=== PATIENT | female | born 1990 | race Caucasian/White ===

== ENCOUNTER 2019-01-01 16:11 | Emergency (ER) | payer OTHER ==
[2019-01-01 16:25] VITALS: BP 114/63
--- NOTE | 2019-01-01 16:39 | EDM.PDOC ---
ED HPI GENERAL MEDICAL PROBLEM - General Chief Complaint: Wound Recheck Stated Complaint: ISSUE WITH INCISION FOLLOWING SURGERY Time Seen by Provider: 01/01/19 16:22 Source of Information: Reports: Patient History Limitations: Reports: No Limitations - History of Present Illness INITIAL COMMENTS - FREE TEXT/NARRATIVE: 28-year-old female attends the ED with pain in her laparoscopic incisional wound left lower quadrant of the abdomen. Patient attended the hospital and underwent a laparoscopic appendectomy by Dr. Floyd Johnson local surgeon 9 days ago. She states all of her surgical wounds other than the left lower quadrant wound are healing well and are causing little discomfort. However she has sneezed and subsequent developed severe pain left lower quadrant at the site of her laparoscopic wound. And not stand fully erect due to the pain in this area. It's her bowels are functioning normally. Appetite is okay. He were chills. Wounds are held together by Dermabond. Onset: Other (Has had pain at the surgical site since the time of surgery 9 days ago) Onset Date: 12/23/18 Duration: Day(s):, Getting Worse Location: Reports: Abdomen (Surgical wound site from laparoscopic wound left lower quadrant/mid quadrant of the abdomen.) Quality: Reports: Ache, Other Severity: Moderate (Cannot stand fully erect position next the pain worse. Current pain is constant and made worse by certain movements or but sneezing or laughing.) Improves with: Reports: Rest Worsens with: Reports: Movement Context: Reports: Other (Post laparoscopic surgical wound for appendectomy carried out 9 days ago.). Denies: Activity (Certain movements will make the pain worse.), Exercise, Lifting, Sick Contact, Trauma Associated Symptoms: Reports: No Other Symptoms Treatments ADMISSIONS REPRESENTATIVE: Reports: Other (see below) (None.) Left Abdomen Pain Score (Numeric/FACES): 4 - Related Data Allergies Allergy/AdvReac Type Severity Reaction Status Date / Time No Known Allergies Allergy Verified 01/01/19 16:25 Home Meds: Home Meds . [No Known Home Meds] 12/23/18 [History] Past Medical History - Past Health History Medical/Surgical History: Denies Medical/Surgical History HEENT History: Reports: Impaired Vision, Other (See Below) Other HEENT History: Wears glasses Gastrointestinal History: Reports: GERD FAMILY COACH History: Reports: , Spontaneous Other FAMILY COACH History: Patient has had circlage; leap procedure 2010 - Past Surgical History HEENT Surgical History: Reports: None GI Surgical History: Reports: Appendectomy Female Surgical History: Reports: LEEP Social & Family History - Family History Family Medical History: Noncontributory Neurological: Reports: CVA Oncologic: Reports: Breast, Cervix - Tobacco Use Smoking Status *Q: Never Smoker - Caffeine Use Caffeine Use: Reports: None - Recreational Drug Use Recreational Drug Use: No - Living Situation & Occupation Living situation: Reports: 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 ) Neurological: Reports: No Symptoms Psychiatric: Reports: No Symptoms Hematologic/Lymphatic: Reports: No Symptoms ED EXAM, SKIN/RASH Exam: See Below Exam Limited By: No Limitations General Appearance: Alert, WD/WN, No Apparent Distress, Other (Temperature 37.2. Pulse is 80 and sinus. Respiratory 16. BP is 114/63 with O2 sats of 98% on room air.) Eye Exam: Bilateral Eye: Normal Inspection Throat/Mouth: Normal Inspection GI/Abdominal: Other (Examination reveals bowel sounds present all 4 quadrants. She has minimal tenderness to palpation of her umbilical surgical wound as well as to the suprapubic laparoscopic wound and the left upper quadrant abdominal surgical wound. The surgical wound along the rectus sheath in the mid left lower quadrant of the abdomen is very tender to touch with a palpable swelling in this area. She has not gotten much adipose tissue and it feels like there is almost bowel or mass within the wound. I do not palpate a subcutaneous hematoma or seroma. The area is very tender to touch. Wounds are all healing adequately and are closed by Dermabond. It is appears to be normal amount of postsurgical bruising.) Back Exam: Normal Inspection, Full Range of Motion. No: CVA Tenderness (L) Extremities: Normal Inspection, Normal Range of Motion, Non-Tender Neurological: Alert, Oriented, CN II-XII Intact, Normal Cognition Psychiatric: Normal Affect, Normal Mood Skin: Warm, Dry, Intact, Normal Color, No Rash, Other (Surgical wounds appear to be healing adequately.) Course - Vital Signs Last Recorded V/S: Last Vital Signs Temp 37.2 C 01/01/19 16:23 Pulse 80 01/01/19 16:23 Resp 16 01/01/19 16:23 BP 114/63 01/01/19 16:23 Pulse Ox 98 01/01/19 16:23 - Radiology Interpretation Free Text/Narrative:: 28-year-old female comes into the ED today for evaluation of pain at laparoscopic surgical wound site left lower quadrant of the abdomen. All of the 4 wounds this is the only one that is hurting and is been hurting since the time of surgery 9 days ago when she underwent laparoscopic appendectomy. She sneezed the other day and the pain intensified immensely. She cannot stand fully erect or stretcher abdominal muscles without severe pain. Pain is at the left lower quadrant left mid abdomen along the rectus sheath. The distribution of the superficial epigastric artery and vein. On palpation the area is exquisitely tender to touch. I'm going to CT her abdomen without contrast to make sure there is no hernia because one it would anticipate this is a seroma/ hematoma occurring postoperatively. However would not be able to tell if there is any bowel or mass within the wound by ultrasound alone. CT the abdomen will be performed without any contrast. - Re-Assessments/Exams Free Text/Narrative Re-Assessment/Exam: 01/01/19 17:25 CT the abdomen and pelvis has been completed with no contrast. She does have a small small to moderate-sized hiatal hernia. Visualized portions of the lung bases are normal. The liver is homogeneous in appearance without any intraductal dilatation. Gallbladder is within normal limits. No calcified gallstones are noted. Pancreas is normal. Spleen is normal. Both kidneys appear to be within normal limits with no evidence of obstruction of the ureters. She has a 2.5 cm cyst on the left ovary. Inspection of the abdominal wall reveals haziness due to inflammation/blood in the subcutaneous tissues that correlates with her site of pain at recent laparoscopic wound. There is a similar appearance of the umbilical surgical wound. Is no bowel or omentum attached to this area and therefore no hernia of the abdominal wall is present. Patient reassured in this regard. Heat packs to the area. Motrin as needed for pain relief. Follow-up as needed. Departure - Departure Time of Disposition: 17:27 Disposition: Home, Self-Care 01 Condition: Fair Clinical Impression: Postprocedural hematoma of abdominal wall - Discharge Information *PRESCRIPTION DRUG MONITORING PROGRAM REVIEWED*: Not Applicable *COPY OF PRESCRIPTION DRUG MONITORING REPORT IN PATIENT DAVID: Not Applicable Referrals: Floyd Johnson MD [Primary Care Provider] - Forms: ED Department Discharge Additional Instructions: Evaluation in the ED today in regards to persistent pain and notable swelling at left lower quadrant laparoscopic wound. This is been present since the time of surgery 9 days ago. Some cells appear to be healing adequately. Signs of infection are present on examination. A palpable lump in the left lower quadrant surgical wound which is very tender to touch. Therefore CT of the abdomen was done without any contrast to rule out a hernia in this area. He does reveal a subcutaneous hematoma at the site of laparoscopic puncture wound. There is no associated hernia in this area. The area may be painful as there are nerves in this area that likely have been inflamed from the surgery. Suggest heat pack to the area for one half hour out of every 4 hours until it's better. It will likely be about 21 days to go away completely. Motrin 600 mg every 6 hours needed for pain relief.
--- NOTE | 2019-01-01 17:20 | CT ---
CT abdomen and pelvis Technique: Multiple axial sections were obtained from above the dome of the diaphragm inferiorly through the pubic symphysis. Intravenous and oral contrast not utilized. Comparison: Prior CT abdomen and pelvis exam of 12/23/18. Findings: Visualized lung bases show nothing acute. Noncontrast appearance of the liver shows no focal abnormality. Spleen appears within normal limits. Adrenal glands show no nodule. Kidneys show no abnormal calcifications. No ureteral dilatation is seen. Aorta shows no aneurysm. Gallbladder contains no calcified gallstones. No retroperitoneal adenopathy or mesenteric abnormalities are seen. Surgical clips are seen next to the cecum compatible with previous appendectomy. No pelvic mass or adenopathy is seen. No free fluid or inflammatory change is seen within the abdomen or pelvis. Minimal increased density at the umbilicus and within the left lower abdominal wall is seen compatible with previous surgery. Bone window settings were reviewed which appear within normal limits for the patient's age. No acute osseous abnormality is appreciated. Impression: 1. Evidence of recent appendectomy. 2. Nothing acute is appreciated on noncontrast CT study of the abdomen and pelvis. Diagnostic code #2
== END 2019-01-01 17:38 | disposition home or self-care (01) ==
LOC: JD.ED 16:11
DX: K91.870 Postprocedural hematoma of a digestive system organ or structure following a digestive system procedure (principal)
CPT/HCPCS: 74176; 74176-26; 99282; 99283-25

== ENCOUNTER 2019-06-18 10:30 | Emergency (ER) | payer OTHER ==
[2019-06-18 10:40] VITALS: BP 117/66; PULSE 104
[2019-06-18] MEDS ORDERED: Sodium Chloride 0.9% 10 ML Syringe FLUSH PRN (10:59)
[2019-06-18] MEDS ORDERED: diphenhydrAMINE 50 MG/ML SDV IVPUSH ONE (10:59)
[2019-06-18] MEDS ORDERED: Ketorolac 30 MG/ML SDV IVPUSH ONE (10:59)
[2019-06-18] MEDS ORDERED: Metoclopramide 10 MG/2 ML SDV IVPUSH ONE (11:00)
--- NOTE | 2019-06-18 11:12 | EDM.PDOC ---
<Marva Dubon - Last Filed: 06/18/19 11:04> ED HPI GENERAL MEDICAL PROBLEM - General Chief Complaint: Headache Stated Complaint: MIGRAINE Time Seen by Provider: 06/18/19 10:46 Source of Information: Reports: Patient History Limitations: Reports: No Limitations - History of Present Illness INITIAL COMMENTS - FREE TEXT/NARRATIVE: Patient is a pleasant 28-year-old female who presents to the ED today from [facility] for evaluation of a migraine headache. She denies any previous migraines and may get one headache every month. Patient reports the headache started on 06/15/2019 when she woke up, she felt like she was starting to develop a cold. She tried taking ibuprofen with no relief. The headache is located on the right side of her head and she states it is a constant throb, rating it at a 6/10 today. She has also been sensitive to light for the past the past two days. Yesterday she reports the headache was the worst, at an 8/10, and she was having radiating pain down the right side of her body. She reports that the pain in her fingers made it difficult to grasp utensils. She denies nausea, vomiting, chest pain, and shortness of breath. She reports she currently is at the end of her menstrual cycle. Onset: Sudden Duration: Day(s): Location: Reports: Head Quality: Reports: Throbbing Severity: Mild Improves with: Reports: Rest Worsens with: Reports: Movement Associated Symptoms: Reports: No Other Symptoms Treatments [employer]: Reports: NSAIDS Headache Pain Score (Numeric/FACES): 5 - Related Data Allergies Allergy/AdvReac Type Severity Reaction Status Date / Time No Known Allergies Allergy Verified 06/18/19 10:40 Home Meds: Home Meds . [No Known Home Meds] 12/23/18 [History] Past Medical History - Past Health History Medical/Surgical History: Denies Medical/Surgical History HEENT History: Reports: Impaired Vision, Other (See Below) Other HEENT History: Wears glasses Gastrointestinal History: Reports: GERD MANAGER SOURCING History: Reports: , Spontaneous Other MANAGER SOURCING History: Patient has had circlage; leap procedure 2010 - Past Surgical History HEENT Surgical History: Reports: None GI Surgical History: Reports: Appendectomy Female Surgical History: Reports: LEEP Social & Family History - Family History Family Medical History: Noncontributory Neurological: Reports: CVA Oncologic: Reports: Breast, Cervix - Tobacco Use Smoking Status *Q: Never Smoker - Caffeine Use Caffeine Use: Reports: None - Recreational Drug Use Recreational Drug Use: No - Living Situation & Occupation Living situation: Reports: 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 Denies: Fever, Chills, Weakness HEENT: Reports: No Symptoms. Denies: Ear Pain, Eye Pain, Throat Pain, Vertigo, Vision Change Respiratory: Reports: No Symptoms. Denies: Shortness of Breath, Wheezing, Cough Cardiovascular: Reports: No Symptoms. Denies: Chest Pain, Edema, Lightheadedness, Syncope GI/Abdominal: Reports: No Symptoms. Denies: Abdominal Pain, Diarrhea, Nausea, Vomiting Musculoskeletal: Reports: No Symptoms. Denies: Neck Pain, Back Pain Skin: Reports: No Symptoms. Denies: Rash, Erythema Neurological: Reports: Headache (right-side with pain radiating down right side of body- worse with movement. Better today). Denies: Numbness, Syncope, Tingling, Weakness Psychiatric: Reports: No Symptoms - Physical Exam Exam: See Below Exam Limited By: No Limitations General Appearance: Alert, WD/WN, No Apparent Distress Eye Exam: Bilateral Eye: PERRL Head Exam: Atraumatic, Normocephalic Neck: Normal Inspection, Supple, Non-Tender, Full Range of Motion Respiratory/Chest: No Respiratory Distress, Lungs Clear, Normal Breath Sounds, No Accessory Muscle Use, Chest Non-Tender Cardiovascular: Normal Peripheral Pulses, No Edema, No Gallop, No JVD, No Murmur , No Rub, Tachycardia GI/Abdominal: Normal Bowel Sounds, Soft, Non-Tender, No Organomegaly, No Distention, No Mass Neuro Exam (Abbreviated): Alert, Oriented, CN II-XII Intact, Normal Cognition, No Motor/Sensory Deficits, Other (pain in right hand with grasping, but equal strength compared to left) Back Exam: Normal Inspection, Full Range of Motion Extremities: Normal Inspection, Normal Range of Motion, Non-Tender, No Pedal Edema, Normal Capillary Refill Psychiatric: Normal Affect, Normal Mood Skin Exam: Warm, Dry, Intact, Normal Color, No Rash Course - Vital Signs Last Recorded V/S: Last Vital Signs Temp 99.2 F 06/18/19 10:37 Pulse 104 H 06/18/19 10:37 Resp 16 06/18/19 10:37 BP 117/66 06/18/19 10:37 Pulse Ox 99 06/18/19 10:37 - Orders/Labs/Meds Orders: Active Orders 24 hr Category Date Time Status Peripheral IV Care [RC] . DIRECTED Care 06/18/19 10:59 Active Sodium Chloride 0.9% [Saline Flush] Med 06/18/19 10:59 Active 10 ml FLUSH ASDIRECTED PRN Peripheral IV Insertion Adult [OM.PC] Routine Oth 06/18/19 10:59 Ordered Medication Orders Sodium Chloride (Saline Flush) 10 ml FLUSH ASDIRECTED PRN PRN Reason: Keep Vein Open Last Admin: 06/18/19 11:21 Dose: 10 ml Meds: Medications Generic Name Dose Route Start Last Admin Trade Name Freq PRN Reason Stop Dose Admin Sodium Chloride 10 ml 06/18/19 10:59 06/18/19 11:21 Saline Flush FLUSH 10 ml ASDIRECTED PRN Administration Keep Vein Open Discontinued Medications Generic Name Dose Route Start Last Admin Trade Name Freq PRN Reason Stop Dose Admin Diphenhydramine HCl 50 mg 06/18/19 10:59 06/18/19 11:21 Benadryl IVPUSH 06/18/19 11:00 50 mg ONETIME ONE Administration Ketorolac Tromethamine 30 mg 06/18/19 10:59 06/18/19 11:21 Toradol IVPUSH 06/18/19 11:00 30 mg ONETIME ONE Administration Metoclopramide HCl 10 mg 06/18/19 11:00 06/18/19 11:21 Reglan IVPUSH 06/18/19 11:01 10 mg ONETIME ONE Administration Departure - Departure Disposition: Home, Self-Care 01 Clinical Impression: Migraine - Discharge Information Referrals: Chandrika Esqueda MD [Primary Care Provider] - Forms: ED Department Discharge Additional Instructions: Go home and rest. Please return if you are worse. Sepsis Event Note - Evaluation Sepsis Screening Result: No Definite Risk - Focused Exam Vital Signs: Vital Signs Temp Pulse Resp BP Pulse Ox 06/18/19 10:37 99.2 F 104 H 16 117/66 99 Date Exam was Performed: 06/18/19 Time Exam was Performed: 11:04 - My Orders Last 24 Hours: My Active Orders 06/18/19 10:59 Peripheral IV Care [RC] . DIRECTED Sodium Chloride 0.9% [Saline Flush] 10 ml FLUSH ASDIRECTED PRN Peripheral IV Insertion Adult [OM.PC] Routine - Assessment/Plan Last 24 Hours: My Active Orders 06/18/19 10:59 Peripheral IV Care [RC] . DIRECTED Sodium Chloride 0.9% [Saline Flush] 10 ml FLUSH ASDIRECTED PRN Peripheral IV Insertion Adult [OM.PC] Routine <Teto Myers A - Last Filed: 06/18/19 12:28> Course - Re-Assessments/Exams Free Text/Narrative Re-Assessment/Exam: 06/18/19 12:25 I examined the patient myself and I agree with Marva's assessment and plan. I ordered a CT of her head, IV saline lock, toraodl 30mg IV, reglan 10mg IV, and benadryl. The CT of her head looks good. She feels better. I will discharge her home. Departure - Departure Time of Disposition: 12:30 Condition: Good - Discharge Information *PRESCRIPTION DRUG MONITORING PROGRAM REVIEWED*: Not Applicable *COPY OF PRESCRIPTION DRUG MONITORING REPORT IN PATIENT DAVID: Not Applicable Sepsis Event Note - Focused Exam Date Exam was Performed: 06/18/19 Time Exam was Performed: 12:25
--- NOTE | 2019-06-18 11:56 | CT ---
Head CT Technique: Multiple axial sections through the brain were obtained. Intravenous contrast was not utilized. Comparison: No prior intracranial imaging is available. Findings: Ventricles along with basal cisterns and sulci over the convexities are within normal limits for the patient's age. No abnormal parenchymal densities are seen. No evidence of intracranial hemorrhage. No midline shift or mass effect is seen. Visualized mastoid sinuses and paranasal sinuses show nothing acute. No acute calvarial abnormality is appreciated. Impression: 1. Nothing acute is appreciated on noncontrast head CT. Diagnostic code #1 Study was dictated in [place] Standard Time
== END 2019-06-18 12:32 | disposition home or self-care (01) ==
LOC: JD.ED 10:30
DX: G43.909 Migraine, unspecified, not intractable, without status migrainosus (principal)
CPT/HCPCS: 70450; 96374; 96375; 99284; J1200; J1885; J2765; 99283

== ENCOUNTER 2021-07-14 22:42 | Inpatient (IN) | payer OTHER ==
[2021-07-14] MEDS ORDERED: Sodium Chloride 0.9% 100 ML ONE (23:06)
[2021-07-14] MEDS ORDERED: Ampicillin 2 GM AdvVial IV ONE (23:06)
[2021-07-14] MEDS ORDERED: Sodium Chloride 0.9% 10 ML Syringe FLUSH PRN (23:12)
[2021-07-14] MEDS ORDERED: Nalbuphine 10 MG/1 ML Vial IVPUSH PRN (23:12)
[2021-07-14] MEDS ORDERED: Ampicillin 2 GM in Sodium Chloride 0.9% 100 ML IV ONE (23:12)
[2021-07-14] MEDS ORDERED: Oxytocin/Lactated Ringers 10 UNIT/1,000 ML BAG IV SCH ×2 (23:15)
[2021-07-14] MEDS: Lactated Ringers 1,000 ML IV SCH (23:49)
[2021-07-14] MEDS ORDERED: diphenhydrAMINE 50 MG/ML SDV IVPUSH PRN (23:54)
[2021-07-14] MEDS ORDERED: ePHEDrine 50 MG/ML SDV IVPUSH PRN (23:54)
[2021-07-14] MEDS ORDERED: fentaNYL 100 MCG/2 ML SDV EPIDUR PRN (23:54)
[2021-07-14] MEDS ORDERED: Bupivacaine/fentaNYL/NS 100 ML Bag EPIDUR PRN (23:54)
[2021-07-15] MEDS ORDERED: Bupivacaine 0.25% 10 ML SDV ONE
[2021-07-15] MEDS: Lactated Ringers 1,000 ML IV SCH (02:23)
[2021-07-15] MEDS ORDERED: Ampicillin 1 GM in Sodium Chloride 0.9% 100 ML IV SCH (03:15)
[2021-07-15] MEDS ORDERED: Acetaminophen 325 MG Tab PO PRN (05:28)
[2021-07-15] MEDS ORDERED: Witch Hazel Medicated Pads 40/Jar TOP PRN (05:28)
[2021-07-15] MEDS ORDERED: Benzocaine/Menthol 20%-0.5% Spray 78 GM Cannister TOP PRN (05:28)
[2021-07-15] MEDS: Ibuprofen 600 MG Tab PO PRN ×3 (08:13→20:46)
[2021-07-15] MEDS: Docusate Sodium 100 MG Cap PO PRN ×2 (08:14→19:36)
[2021-07-15] MEDS ORDERED: Sodium Chloride 0.9% 10 ML Syringe FLUSH SCH (09:00)
[2021-07-16] MEDS: Ibuprofen 600 MG Tab PO PRN ×2 (02:58→10:40)
[2021-07-16 14:43] VITALS: BP 109/59; PULSE 84
== END 2021-07-16 12:45 | disposition home or self-care (01) | DRG 807 ==
LOC: JD.OBCHECK 22:42 → JD.OB 22:45 → JD.OBCHECK 23:11 → JD.OB 23:13 → OBSVTOIN 07-15 05:07
PROVIDERS: ADMIT Obstetrics & Gynecology; ATTEND Obstetrics & Gynecology
PROC: 10E0XZZ Delivery of Products of Conception, External Approach (ICD-10-PCS; principal; 2021-07-15)
PROC: 0KQM0ZZ Repair Perineum Muscle, Open Approach (ICD-10-PCS; 2021-07-15)
PROC: 10907ZC Drainage of Amniotic Fluid, Therapeutic from Products of Conception, Via Natural or Artificial Opening (ICD-10-PCS; 2021-07-15)
PROC: 3E0R3BZ Introduction of Anesthetic Agent into Spinal Canal, Percutaneous Approach (ICD-10-PCS; 2021-07-15)
DX: O99.824 Streptococcus B carrier state complicating childbirth (principal); Z37.0 Single live birth; Z3A.39 39 weeks gestation of pregnancy; O70.1 Second degree perineal laceration during delivery; Z20.822 Contact with and (suspected) exposure to COVID-19
CPT/HCPCS: 01967; 36415; 51702; 59025; 59409; 85025; 86592; 86850; 86900; 86901; A9270-GY; J0290; J2300; J3010; J3490; J7120; U0002

== ENCOUNTER 2021-10-09 10:32 | Emergency (ER) | payer OTHER ==
[2021-10-09 11:00] VITALS: BP 112/73; PULSE 77
[2021-10-09] MEDS ORDERED: Sodium Chloride 0.9% 1,000 ML IV STA (11:03)
[2021-10-09 12:14] LABS: ESTIMATED GFR > 60 mL/min (>60)
== END 2021-10-09 13:15 | disposition home or self-care (01) ==
LOC: JD.ED 10:32
DX: N93.9 Abnormal uterine and vaginal bleeding, unspecified (principal); Z79.899 Other long term (current) drug therapy; Z90.49 Acquired absence of other specified parts of digestive tract
CPT/HCPCS: 36415; 80053; 84703; 85025; 96360; 96361; 99284; J7030; 99283

== ENCOUNTER 2022-04-05 16:43 | Emergency (ER) | payer BC, OTHER ==
[2022-04-05 16:58] VITALS: BP 120/72; PULSE 105
[2022-04-05] MEDS ORDERED: Dextrose 5%-0.9% NaCl 1,000 ML IV SCH (17:30)
[2022-04-05] MEDS ORDERED: Ibuprofen 600 MG Tab PO ONE (17:38)
[2022-04-05 19:21] LABS: CORONAVIRUS COVID-19 NAA NEGATIVE (NEGATIVE)
== END 2022-04-05 20:10 | disposition home or self-care (01) ==
LOC: JD.ED 16:43
DX: J10.1 Influenza due to other identified influenza virus with other respiratory manifestations (principal); K21.9 Gastro-esophageal reflux disease without esophagitis; Z20.822 Contact with and (suspected) exposure to COVID-19
CPT/HCPCS: 0241U; 36415; 71045; 80053; 83735; 85025; 86140; 87040; 96360; 96361; 99285; A9270; J7042

== ENCOUNTER 2025-01-15 07:10 | Day surgery (SDC) | payer BC ==
[~2025-01-15 07:10] MED LIST: Dexamethasone 4 MG/ML 5 ML MDV ONE; Ketorolac 30 MG/ML SDV ONE; Lactated Ringers 1,000 ML ONE; Lidocaine 1% 4 ML ONE; Midazolam 1 MG/ML 2 ML SDV ONE; Ondansetron 4 MG/2 ML SDV ONE; Propofol 200 MG/20 ML SDV ONE; Sodium Chloride 0.9% 10 ML Syringe FLUSH PRN; Sodium Chloride 0.9% 10 ML Syringe FLUSH SCH; dexmedeTOMIDine HCl 200 MCG/2 ML SDV ONE; fentaNYL 250 MCG/5 ML SDV ONE
[2025-01-15] MEDS: Lactated Ringers 1,000 ML IV SCH (07:30)
[2025-01-15 07:40] LABS: BASOPHILS ABSOLUTE AUTO 0.0 K/mm3 (0.0-0.2); BASOPHILS PERCENT AUTO 0.7 % (0.0-1.0); EOSINOPHILS ABSOLUTE AUTO 0.1 K/mm3 (0.0-0.4); EOSINOPHILS PERCENT AUTO 2.5 % (0.0-6.0); IMMATURE GRAN ABSOLUTE AUTO 0.01 K/mm3 (0.00-0.05); IMMATURE GRAN PERCENT AUTO 0.2 % (0.0-0.4); LYMPHOCYTES ABSOLUTE AUTO 1.6 K/mm3 (1.0-4.8); LYMPHOCYTES PERCENT AUTO 36.4 % (24.0-44.0); MEAN PLATELET VOLUME 9.4 fl (9.4-12.3); MONOCYTES ABSOLUTE AUTO 0.3 K/mm3 (0.0-0.8); MONOCYTES PERCENT AUTO 6.9 % (0.0-8.0); NEUTROPHILS ABSOLUTE AUTO 2.4 K/mm3 (1.8-7.7); NEUTROPHILS PERCENT AUTO 53.3 % (41.0-71.0); NRBC ABSOLUTE 0.00 (0.00-0.02); NRBC PERCENT 0.0 % (0.0-0.2); PLATELET COUNT,PLT 253 K/mm3 (150-400); RED BLOOD CELL COUNT 4.06 M/mm3 (4.10-5.30); WHITE BLOOD CELL COUNT,WBC 4.48 K/mm3 (3.9-11.3)
[2025-01-15] MEDS ORDERED: fentaNYL 100 MCG/2 ML SDV IVPUSH PRN (07:40)
[2025-01-15 08:02] LABS: BLOOD UREA NITROGEN,BUN 10.0 mg/dL (7-18); CARBON DIOXIDE,CO2 27.0 mEq/L (21-32); CHLORIDE,CL 106.0 mEq/L (98-107); CREATININE 1.0 mg/dL (0.55-1.02); EST CRCL DRUG DOSING (CG) 60.38 mL/min; ESTIMATED GFR 76.0 mL/min (>60); GLUCOSE RANDOM 96.0 mg/dL (70-99); POTASSIUM,K 4.2 mEq/L (3.5-5.1); SODIUM,NA 139.0 mEq/L (136-145)
[2025-01-15] MEDS ORDERED: Glycopyrrolate 0.2 MG/ML 2 ML SDV ONE (08:25)
[2025-01-15] MEDS: Lidocaine 1% with EPINEPHrine 1:100,000 20 ML MDV ONE (09:41)
[2025-01-15] MEDS: Acetaminophen/oxyCODONE 325-5 MG Tab PO ONE (12:16)
[2025-01-15 12:31] VITALS: BP 94/46; PULSE 77
[2025-01-15] MEDS: Ondansetron 4 MG/2 ML SDV IVPUSH PRN (13:05)
== END 2025-01-15 13:30 | disposition home or self-care (01) ==
LOC: JD.SDS 07:10
PROVIDERS: ATTEND Obstetrics & Gynecology
DX: N72 Inflammatory disease of cervix uteri (principal); N83.8 Other noninflammatory disorders of ovary, fallopian tube and broad ligament; N85.8 Other specified noninflammatory disorders of uterus; F41.9 Anxiety disorder, unspecified; Z91.09 Other allergy status, other than to drugs and biological substances; Z79.899 Other long term (current) drug therapy
CPT/HCPCS: 36415; 58552; 80048; 81025; 85025; 86850; 86900; 86901; A9270; J0665; J0690; J1100; J1596; J1885; J2003; J2004; J2250; J2405; J2704; J3010; J7120; 00944; J1171; J3490